=== PATIENT | female | born 1975 | race Caucasian/White ===

== ENCOUNTER 2017-04-01 12:27 | Emergency (ER) | payer MEDICAID ==
[~2017-04-01] VITALS: Ht 162.6 cm; Wt 60.4 kg
[2017-04-01 16:22] VITALS: BP 135/72
== END 2017-04-01 16:22 | disposition home or self-care (01) ==
LOC: ED 12:27
DX: M25.561 Pain in right knee (principal); M25.511 Pain in right shoulder; M79.89 Other specified soft tissue disorders
CPT/HCPCS: J1885; Q0092